=== PATIENT | male | born 1965 | race American Indian/Alaskan Native ===

== ENCOUNTER → 2021-01-12 09:37 | Outpatient (BNVA) | payer MEDICAID, SELFPAY | PROVIDERS: PCP Family Medicine; Visit Provider Student in an Organized Health Care Education/Training Program | DX: M25.50 Pain in unspecified joint (principal); L40.9 Psoriasis, unspecified | CPT/HCPCS: 99202 ==

== ENCOUNTER 2021-02-15 09:22 | Outpatient (REF) | payer MEDICAID, SELFPAY ==
--- NOTE | ~2021-02-15 | XR_ITS ---
EXAMINATION: XR KNEE, RIGHT XR KNEE, LEFT XR ANKLE, RIGHT XR ANKLE, LEFT XR FOOT, RIGHT XR FOOT, LEFT CLINICAL INFORMATION: Pain. COMPARISON: Left knee radiographs as well as bilateral ankle radiographs dated 10/03/2019. Right knee radiographs dated 07/29/2016. TECHNIQUE: AP, lateral, and sunrise views of the right and left knee. AP, lateral, and mortise views of the right and left ankle. AP, oblique, and lateral views of the right and left foot. FINDINGS: Right knee: Mild lateral compartment joint space narrowing. Tiny patellofemoral and lateral compartment marginal osteophytes. No osseous erosion. No fracture or dislocation. 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 No significant joint effusion. Atherosclerotic calcifications. Left knee: Tiny patellofemoral marginal osteophytes. No significant joint space narrowing. No osseous erosion. No fracture or dislocation. No significant joint effusion. Atherosclerotic calcifications. Right ankle: No acute fracture or dislocation. The ankle mortise is maintained. No joint space narrowing or marginal osteophytes. No osseous erosion. Dorsal calcaneal enthesophyte, unchanged. Mild degenerative spurring at the dorsal aspect of the posterior malleolus, new when compared to the prior examination. No significant joint effusion. Left ankle: No acute fracture or dislocation. The ankle mortise is maintained. No joint space narrowing or marginal osteophytes. No osseous erosion. Tiny plantar and dorsal calcaneal enthesophytes, similar when compared to the prior examination. Right foot: No acute fracture or dislocation. Joint space narrowing with marginal osteophytes at the 1st metacarpophalangeal and 1st interphalangeal joints. Subchondral cystic change and mild sclerosis at the articulation between the calcaneus and navicula, which could indicate a fibrous calcaneonavicular coalition. Left foot: No acute fracture or dislocation. Mild joint space narrowing with small marginal osteophytes at the 1st metacarpophalangeal and interphalangeal joints. Mild subchondral sclerosis and spurring at the calcaneonavicular articulation, which could indicate a fibrous coalition. No abnormal soft tissue calcification. XR/XR ankle RT 2V IMPRESSION: Right knee: Minimal patellofemoral and lateral compartment osteoarthritis, unchanged. Redemonstration of a bipartite patella. Left knee: Minimal patellofemoral osteoarthritis, unchanged. Right ankle: No acute osseous abnormality. Stable dorsal calcaneal spur. Focal degenerative spurring at the dorsal posterior malleolus, new when compared to the prior examination. Left ankle: No acute osseous abnormality. Tiny plantar and dorsal calcaneal spurs, unchanged. Right foot: No acute osseous abnormality. Mild degenerative arthritis at the 1st metatarsophalangeal and interphalangeal joints. 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 Left foot: No acute osseous abnormality. Mild degenerative arthritis at the 1st metatarsophalangeal and interphalangeal joints. 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
[2021-02-15 10:21] LABS: MANUAL DIFF FLAG NO
[2021-02-15 10:33] LABS: Basophils Absolute Auto 0.2 X10*3/uL (0.0-0.2); Basophils Percent Auto 1.7 % (0-2); Eosinophils Absolute Auto 0.2 X10*3/uL (0.0-0.4); Eosinophils Percent Auto 1.7 % (0-4); Hematocrit 47.5 % (42-52); Hemoglobin 16.4 g/dl (14.0-18.0); Imm Gran Abs Auto 0.08 X10*3/uL (0.00-0.03); Imm Gran Pct Auto 0.7 % (0.0-0.4); Lymphocytes Absolute Auto 3.4 X10*3/uL (1.2-4.9); Lymphocytes Percent Auto 28.1 % (20-40); Mean Corpuscular HGB Conc 34.5 g/dl (31.0-36.0); Mean Corpuscular Hemoglobin 31.3 pg (27.0-33.0); Mean Corpuscular Volume 90.6 fL (80-98); Mean Platelet Volume 10.8 fL (9.4-12.4); Monocytes Absolute Auto 0.8 X10*3/uL (0.1-1.2); Monocytes Percent Auto 6.8 % (2-11); Neutrophils Absolute Auto 7.4 X10*3/uL (2.0-8.3); Platelet Count 388 X10*3/uL (160-400); Red Blood Count 5.24 X10*6/uL (4.60-5.80); Red Cell Distribution Width 12.7 % (11.0-16.0); White Blood Count 12.1 X10*3/uL (4.8-10.8)
[2021-02-15 10:49] LABS: Alanine Aminotransferase 37 U/L (0-40); Albumin Level 4.5 g/dL (3.5-5.0); Alkaline Phosphatase 137 U/L (39-117); Anion Gap 14 (12-20); Aspartate Amino Transferase 22 U/L (5-37); Bilirubin Total 1.2 mg/dL (0.0-1.0); Blood Urea Nitrogen 8 mg/dL (9-16); C Reactive Protein 0.93 mg/dL (< or = 0.50); Carbon Dioxide 31 mmol/L (22-29); Chloride 97 mmol/L (96-108); Estimated Glomerular Filt Rate > 60; Glucose Random 213 mg/dL (60-115); Potassium 4.2 mmol/L (3.3-5.1); Sodium 138 mmol/L (135-145); Total Protein 7.9 g/dL (6.5-8.0)
[2021-02-15 11:05] LABS: HBc Num1 0.05 S/CO (0.00-0.79); Hepatitis B Core Antibody Nonreactive (Nonreactive); ~HepC Num1 0.08 S/CO (0.00-0.79); ~Hepatitis B Surface Antibody NONREACTIVE (Nonreactive); ~Hepatitis C Antibody Nonreactive (Nonreactive)
[2021-02-15 11:11] LABS: Thyroid Stimulating Hormone 0.96 uIU/mL (0.32-4.0)
[2021-02-15 11:26] LABS: Erythrocyte Sedimentation Rate 10 MM/HR (0-15)
[2021-02-15 12:38] LABS: HBsAGNum1 1.08 S/CO (0.00-0.99); HBsAGNum2 Reactive; HBsAGNum3 Reactive
[2021-02-15 12:39] LABS: Hepatitis B Surface Antigen Retest CNFM (Negative)
[2021-02-16 05:09] LABS: Hepatitis B Surface Antigen Rep Reactive (Negative); R2 S/CO 1.07 S/CO
[2021-02-16 05:50] LABS: Neutralization % 0
[2021-02-16 11:52] LABS: Lyme Abs Screen <0.90 index
[2021-02-16 15:02] LABS: Cyclic Citrullinated Peptide <16 UNITS
[2021-02-19 04:42] LABS: Hepatitis A Antibody IgM 0.53 Index (0-0.79); ~Hepatitis A Antibody IgM Nonreactive (Nonreactive)
[2021-02-19 14:42] LABS: Vitamin D 25-OH, D2 <4 ng/mL; Vitamin D 25-OH, D3 41 ng/mL; Vitamin D 25-OH, Total 41 ng/mL (30-100)
== END 2021-02-15 09:23 | disposition home or self-care (01) ==
LOC: HO.LAB 09:22
PROVIDERS: PCP Family Medicine; Visit Provider Student in an Organized Health Care Education/Training Program
DX: M25.50 Pain in unspecified joint (principal)
CPT/HCPCS: 36415; 73562; 73600; 73620; 80053; 82306; 84443; 85025; 85652; 86140; 86200; 86617; 86618; 86704; 86706; 86709; 86803; 87340

== ENCOUNTER → 2021-02-18 10:57 | Outpatient (BNVA) | payer MEDICAID, SELFPAY | PROVIDERS: Visit Provider Student in an Organized Health Care Education/Training Program | DX: M25.50 Pain in unspecified joint (principal); L40.9 Psoriasis, unspecified | CPT/HCPCS: 99212 ==

== ENCOUNTER → 2021-07-28 07:47 | Outpatient (BNVA) | payer MEDICAID, SELFPAY | PROVIDERS: PCP Family Medicine; Visit Provider Nurse Practitioner Family ==

== ENCOUNTER 2021-12-24 07:08 | Outpatient (REF) | payer MEDICAID, SELFPAY ==
--- NOTE | ~2021-12-24 | XR_ITS ---
EXAMINATION: STANDING BILATERAL KNEES AND LATERAL AND PATELLAR VIEWS OF THE LEFT KNEE CLINICAL INFORMATION: Knee pain COMPARISON: None TECHNIQUE: A standing frontal radiograph of both knees and lateral and patellar views of the left knee were acquired. FINDINGS: There is no evidence of fracture, dislocation or bone lesion. In the left knee, tiny marginal patellar osteophytes are noted, but joint spaces are preserved. No significant degenerative or proliferative changes are detected. There is no significant joint effusion. The right knee joint is preserved. 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 Arterial calcifications are noted in both legs. XR/XR knee LT 2V IMPRESSION: 1. Minimal patellofemoral osteophyte formation in the left knee, but no significant degenerative, hypertrophic or arthropathic change in either knee.
--- NOTE | ~2021-12-24 | XR_ITS ---
EXAMINATION: STANDING BILATERAL KNEES AND LATERAL AND PATELLAR VIEWS OF THE LEFT KNEE CLINICAL INFORMATION: Knee pain COMPARISON: None TECHNIQUE: A standing frontal radiograph of both knees and lateral and patellar views of the left knee were acquired. FINDINGS: There is no evidence of fracture, dislocation or bone lesion. In the left knee, tiny marginal patellar osteophytes are noted, but joint spaces are preserved. No significant degenerative or proliferative changes are detected. There is no significant joint effusion. The right knee joint is preserved. 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 Arterial calcifications are noted in both legs. XR/XR knee standing BI IMPRESSION: 1. Minimal patellofemoral osteophyte formation in the left knee, but no significant degenerative, hypertrophic or arthropathic change in either knee.
== END 2021-12-24 07:09 | disposition home or self-care (01) ==
LOC: HO.HOSX 07:08
PROVIDERS: Visit Provider Physician Assistant
DX: M23.92 Unspecified internal derangement of left knee (principal); F17.210 Nicotine dependence, cigarettes, uncomplicated
CPT/HCPCS: 73560; 73565; 99202

== ENCOUNTER → 2022-02-02 19:30 | Outpatient (REF) | payer MEDICAID, SELFPAY | LOC: HO.SL 19:30 | PROVIDERS: Visit Provider Registered Nurse | DX: G47.33 Obstructive sleep apnea (adult) (pediatric) (principal); M25.50 Pain in unspecified joint; M25.562 Pain in left knee; L40.9 Psoriasis, unspecified | CPT/HCPCS: 95811; 99212 ==

== ENCOUNTER → 2022-09-01 09:50 | Outpatient (BNVA) | payer MEDICAID, SELFPAY | PROVIDERS: PCP Family Medicine; Visit Provider Nurse Practitioner Family | DX: L40.9 Psoriasis, unspecified (principal); M17.12 Unilateral primary osteoarthritis, left knee | CPT/HCPCS: 99212 ==

== ENCOUNTER 2023-07-14 08:16 | Outpatient (REF) | payer MEDICAID, SELFPAY ==
[2023-07-14 12:32] LABS: Alanine Aminotransferase 21 U/L (0-40); Alkaline Phosphatase 147 U/L (39-117); Aspartate Amino Transferase 22 U/L (5-37); Bilirubin Direct 0.5 mg/dL (0.0-0.5); Bilirubin Total 0.9 mg/dL (0.0-1.0); Cholesterol 117 mg/dL (<200); HDL Cholesterol 40 mg/dL (>40); LDL Cholesterol Calculated 55 mg/dL (<100); Total Protein 7.8 g/dL (6.5-8.0); Triglycerides 111 mg/dL (<150)
== END 2023-07-14 08:17 | disposition home or self-care (01) ==
LOC: HO.HHCL 08:16
PROVIDERS: Visit Provider Registered Nurse
DX: E78.1 Pure hyperglyceridemia (principal)
CPT/HCPCS: 36415; 80061; 80076

== ENCOUNTER 2023-09-22 09:14 | Outpatient (REF) | payer MEDICAID, SELFPAY ==
[2023-09-22 15:06] LABS: Vitamin D 25-OH Total 26.9 ng/mL (>30)
[2023-09-22 15:11] LABS: Estimated Average Glucose 114 mg/dL; Hemoglobin A1C 150.6635 umol/L; Hemoglobin A1c % 5.6 % (<6.0)
== END 2023-09-22 09:15 | disposition home or self-care (01) ==
LOC: HO.CHCLDS 09:14
PROVIDERS: Visit Provider Registered Nurse
DX: E11.9 Type 2 diabetes mellitus without complications (principal); Z79.4 Long term (current) use of insulin; Z86.39 Personal history of other endocrine, nutritional and metabolic disease
CPT/HCPCS: 36415; 82306; 83036

== ENCOUNTER 2023-12-14 08:05 | Outpatient (REF) | payer MEDICAID, SELFPAY ==
[2023-12-14 11:52] LABS: HIV AB/AG Nonreactive (Nonreactive); HIV Num 1 0.05 S/CO (0.00-0.99)
[2023-12-14 11:58] LABS: Alanine Aminotransferase 23 U/L (0-40); Alkaline Phosphatase 133 U/L (39-117); Anion Gap 13 (12-20); Aspartate Amino Transferase 22 U/L (5-37); Bilirubin Direct 0.4 mg/dL (0.0-0.5); Bilirubin Total 0.7 mg/dL (0.0-1.0); Blood Urea Nitrogen 11 mg/dL (9-16); Carbon Dioxide 30 mmol/L (22-29); Chloride 94 mmol/L (96-108); Estimated Glomerular Filt Rate > 60; Gamma Glutamyl Transpeptidase 103 U/L (11-51); Glucose Random 126 mg/dL (60-115); Potassium 3.2 mmol/L (3.3-5.1); Sodium 134 mmol/L (135-145); Total Protein 7.7 g/dL (6.5-8.0)
[2023-12-14 12:17] LABS: Creatinine Urine 79.82 mg/dL
[2023-12-14 13:19] LABS: CT PCR NOT DETECTED (Not Detect.); NG PCR NOT DETECTED (Not Detect.)
[2023-12-16 15:03] LABS: HCV Log PCR <1.18 NOT DETECTED Log IU/mL (NOT DETECTED); HepC Viral Load <15 NOT DETECTED IU/mL (NOT DETECTED)
[2023-12-18 13:54] LABS: RPR Rapid Plasma Reagin NON-REACTIVE (NON-REACTIVE)
== END 2023-12-14 08:06 | disposition home or self-care (01) ==
LOC: HO.HHCL 08:05
PROVIDERS: Visit Provider Registered Nurse
DX: Z00.00 Encounter for general adult medical examination without abnormal findings (principal); Z11.4 Encounter for screening for human immunodeficiency virus [HIV]; Z11.3 Encounter for screening for infections with a predominantly sexual mode of transmission; R74.8 Abnormal levels of other serum enzymes; E11.9 Type 2 diabetes mellitus without complications; Z79.4 Long term (current) use of insulin
CPT/HCPCS: 0353U; 36415; 80048; 80076; 82043; 82570; 82977; 86592; 87389; 87522

== ENCOUNTER 2023-12-25 08:36 | Outpatient (REF) | payer MEDICAID, SELFPAY ==
[2023-12-25 15:02] LABS: Anion Gap 16 (12-20); Blood Urea Nitrogen 12 mg/dL (9-16); Calcium 9.7 mg/dL (8.4-10.2); Carbon Dioxide 29 mmol/L (22-29); Chloride 92 mmol/L (96-108); Estimated Glomerular Filt Rate > 60; Glucose Random 146 mg/dL (60-115); Magnesium 2.4 mg/dL (1.6-2.6); Potassium 3.1 mmol/L (3.3-5.1); Sodium 134 mmol/L (135-145)
== END 2023-12-25 08:37 | disposition home or self-care (01) ==
LOC: HO.CHCLDS 08:36
PROVIDERS: Visit Provider Registered Nurse
DX: E87.6 Hypokalemia (principal)
CPT/HCPCS: 36415; 80048; 83735

== ENCOUNTER 2024-01-03 08:08 | Outpatient (REF) | payer MEDICAID, SELFPAY ==
[2024-01-03 15:17] LABS: Anion Gap 16 (12-20); Blood Urea Nitrogen 10 mg/dL (9-16); Calcium 9.4 mg/dL (8.4-10.2); Carbon Dioxide 25 mmol/L (22-29); Chloride 96 mmol/L (96-108); Estimated Glomerular Filt Rate > 60; Glucose Random 100 mg/dL (60-115); Potassium 3.3 mmol/L (3.3-5.1); Sodium 134 mmol/L (135-145)
== END 2024-01-03 08:09 | disposition home or self-care (01) ==
LOC: HO.CHCLDS 08:08
PROVIDERS: Visit Provider Registered Nurse
DX: E87.6 Hypokalemia (principal)
CPT/HCPCS: 36415; 80048

== ENCOUNTER 2024-01-10 08:32 | Outpatient (REF) | payer MEDICAID, SELFPAY ==
--- NOTE | ~2024-01-10 | US_ITS ---
EXAMINATION: US ABDOMEN LIMITED CLINICAL INFORMATION: Elevated alkaline phosphatase. COMPARISON: None available. TECHNIQUE: Real-time imaging of the right upper quadrant abdominal viscera. FINDINGS: PANCREAS: Largely obscured by overlapping bowel gas. LIVER: The liver is normal in size. The liver contour is normal. There is diffuse increased liver parenchymal echogenicity. No focal hepatic lesion. There is no intrahepatic biliary duct dilatation seen. GALLBLADDER: Surgically absent. COMMON BILE DUCT: Normal in caliber measuring 0.6 cm in diameter. RIGHT KIDNEY: Normal. No hydronephrosis. No renal calculi or focal parenchymal lesions. The kidney measures 12.7 cm in maximum dimension. FREE FLUID: None. US/US abdomen limited IMPRESSION: 1. There is generalized increase in hepatic echotexture, consistent with fatty infiltration or hepatocellular disease. Please correlate clinically. No focal hepatic mass or intrahepatic biliary dilatation is seen. 2. The gallbladder surgically absent. 3. Technically limited ultrasound examination of the pancreas.
== END 2024-01-10 08:33 | disposition home or self-care (01) ==
LOC: HO.US 08:32
PROVIDERS: PCP Registered Nurse; Visit Provider Registered Nurse
DX: R74.8 Abnormal levels of other serum enzymes (principal)
CPT/HCPCS: 76705

== ENCOUNTER 2024-03-04 09:31 | Outpatient (REF) | payer MEDICAID, SELFPAY ==
[2024-03-04 15:05] LABS: Anion Gap 13 (12-20); Blood Urea Nitrogen 9 mg/dL (9-16); Calcium 9.7 mg/dL (8.4-10.2); Carbon Dioxide 30 mmol/L (22-29); Chloride 95 mmol/L (96-108); Estimated Glomerular Filt Rate > 60; Glucose Random 121 mg/dL (60-115); Potassium 3.3 mmol/L (3.3-5.1); Sodium 135 mmol/L (135-145)
[2024-03-04 15:35] LABS: Vitamin B12 1558 pg/mL (200-900)
== END 2024-03-04 09:32 | disposition home or self-care (01) ==
LOC: HO.CHCLDS 09:31
PROVIDERS: Visit Provider Registered Nurse
DX: E11.9 Type 2 diabetes mellitus without complications (principal); Z79.4 Long term (current) use of insulin
CPT/HCPCS: 36415; 80048; 82607

== ENCOUNTER 2025-05-07 08:21 | Outpatient (REF) | payer MEDICAID, SELFPAY ==
--- OUTSIDE RECORDS SUMMARY | 2025-05-07 08:34 | XMS_ITS | Encounter Summary ---
Author Organization [employer] Address [address] [facility] [address] [place] [address] Care Team Providers Care Mortgage Processing Clerk Name Role Phone Bel Toro PAYROLL AND BENEFITS COORDINATOR Primary Care Provider [phone] Encounter Details Date Type Department Care Team (Late st Contact Info) Description 09/29/[address] [facility] MEDICINE [address] [place], [place] [phone] Dottie Hill Social History Tobacco Use Types Packs/Day Years Used Date Smoking Tobacco: Every Day Cigarettes Smokeless Tobacco: Never Alcohol Use Standard Drinks/Week Comments Yes 0 (1 standard drink = 0.6 oz pur e alcohol) Depression Answer Date Recorded Patient Health Questionnaire-9 Score 0 03/02/2023 Housing Stability Answer Date Recorded What is your housing situation today? I have buzz garcía 09/05/[address] you li ve. Do you have problems with any of the following? None of the above 09/05/2023 Food Insecurity Answer Date Recorded Within the past 12 months, y ou worried that your food would run out before you got money to buy more: Never True 09/05/2023 Within the past 12 months,th e food you bought just didn't last and you didn't have enough money to get more: Never True Transportation Answer Date Recorded In the past 12 months, has l ack of transportation kept you from medical appts, meetings, work or from getting things needed for daily living? No 09/05/2023 Utilities Answer Date Recorded In the past 12 months, has t he electric, gas, oil or water company threatened to shut off services in your home? No 09/05/2023 Depression Answer Date Recorded Patient Health Questionnaire-2 Score 0 03/02/2023 Sex and Gender Information Value Date Recorded Sex Assigned at Male 09/12/2022 10:18 AM EDT Legal Sex Male 10:18 AM EDT Gender Identity Male 09/12/2022 10:18 AM EDT Sexual Orientation Straight 09/12/2022 10 :18 AM EDT documented as of this encounter Plan of Treatment Upcoming Encounters Date Type Department Care Team ([facility] st Contact Info) Description 08/11/2025 9:00 AM EDT Office Visit [facility] MED & PEDS [address] [place] [address] Bel Toro FNP [address] [place] [address] documented as of this encounter Procedures Procedure Name Priority Date/Time Associated Diagnosis Comments COLONOSCOPY Routine 07/24/2018 documented in this encounter Results * Colonoscopy (07/24/2018) Colonoscopy Normal Normal Narrative Dottie Hill - 07/24/2018 Repeat in 3 years Historical Provider HEALTH MAINTENANCE Final Result documented in this encounter Visit Diagnoses Not on filedocumented in this encounter Additional Health Concerns Assessment Noted Time PHQ-9 Depression Total Score: 0 03/02/20 23 11:17 AM EDT documented as of this encounter Care Teams Mortgage Processing Clerk Relationship Specialty Start Date End Date Bel Toro FNP [address] [place] [address] PCP - General Family Medicine 08/30/21 documented as of this encounter
[2025-05-07 11:10] LABS: MANUAL DIFF FLAG NO
[2025-05-07 11:17] LABS: Basophils Absolute Auto 0.2 X10*3/uL (0.0-0.2); Basophils Percent Auto 2.4 % (0-2); Eosinophils Absolute Auto 0.3 X10*3/uL (0.0-0.4); Eosinophils Percent Auto 3.1 % (0-4); Hematocrit 46.6 % (42.0-52.0); Hemoglobin 16.5 g/dl (14.0-18.0); Imm Gran Abs Auto 0.04 X10*3/uL (0.00-0.03); Imm Gran Pct Auto 0.4 % (0.0-0.4); Lymphocytes Percent Auto 32.6 % (20-40); Mean Corpuscular HGB Conc 35.4 g/dl (31.0-36.0); Mean Corpuscular Hemoglobin 30.3 pg (27.0-33.0); Mean Corpuscular Volume 85.5 fL (80.0-98.0); Mean Platelet Volume 9.9 fL (9.4-12.4); Monocytes Percent Auto 10.7 % (2-11); Neutrophils Absolute Auto 4.7 x10*3/uL (2.0-8.3); Neutrophils Percent Auto 50.8 % (45-73); Platelet Count 364 X10*3/uL (160-400); Red Blood Count 5.45 X10*6/uL (4.60-5.80); Red Cell Distribution Width 12.3 % (11.0-16.0); White Blood Count 9.3 X10*3/uL (4.8-10.8)
[2025-05-07 11:26] LABS: Estimated Average Glucose 97 mg/dL
[2025-05-07 11:54] LABS: Alanine Aminotransferase 46 U/L (0-40); Albumin Level 4.4 g/dL (3.5-5.0); Alkaline Phosphatase 110 U/L (39-117); Anion Gap 13 (12-20); Aspartate Amino Transferase 38 U/L (5-37); Blood Urea Nitrogen 9 mg/dL (9-16); Calcium 9.6 mg/dL (8.4-10.2); Carbon Dioxide 29 mmol/L (22-29); Chloride 94 mmol/L (96-108); Cholesterol 121 mg/dL (<200); Creatinine Urine 56.11 mg/dL; Estimated Glomerular Filt Rate > 60; Glucose Random 128 mg/dL (60-115); HDL Cholesterol 63 mg/dL (>40); LDL Cholesterol Calculated 39 mg/dL (<100); Microalbum/Creatinine Ratio Ur 21.3 ug/mg cr (<30); Potassium 3.6 mmol/L (3.3-5.1); Sodium 132 mmol/L (135-145); Total Protein 7.8 g/dL (6.5-8.0); Triglycerides 98 mg/dL (<150)
[2025-05-07 11:56] LABS: TSH reflex Free T4 1.57 uIU/mL (0.32-4.0); Vitamin D 25-OH Total 30.6 ng/mL (>30)
[2025-05-07 12:01] LABS: Prostate Specific Antigen 0.97 ng/mL (<0.05-4.0); Vitamin B12 1451 pg/mL (200-900)
[2025-05-08 07:57] LABS: HIV AB/AG Nonreactive (Nonreactive); HIV Num 1 0.06 S/CO (0.00-0.99)
[2025-05-09 09:54] LABS: RPR Rapid Plasma Reagin NON-REACTIVE (NON-REACTIVE)
[2025-05-09 13:29] LABS: HCV Log PCR <1.18 NOT DETECTED Log IU/mL (NOT DETECTED); HepC Viral Load <15 NOT DETECTED IU/mL (NOT DETECTED)
== END 2025-05-07 08:22 | disposition home or self-care (01) ==
LOC: HO.HHCL 08:21
PROVIDERS: PCP Registered Nurse; Visit Provider Registered Nurse
DX: Z00.00 Encounter for general adult medical examination without abnormal findings (principal); E11.9 Type 2 diabetes mellitus without complications; Z79.4 Long term (current) use of insulin
CPT/HCPCS: 36415; 80053; 80061; 82043; 82306; 82570; 82607; 83036; 84153; 84443; 85025; 86592; 87389; 87522

== ENCOUNTER 2025-05-13 08:08 | Outpatient (REF) | payer MEDICAID, SELFPAY ==
--- OUTSIDE RECORDS SUMMARY | 2025-05-13 08:14 | XMS_ITS | Encounter Summary ---
Author Organization [employer] Address [address] [facility] 7t [place] [address] Care Team Providers Care Air Compressor Operator Name Role Phone Bel Troo HISTOPATHOLOGY TECHNICIAN Primary Care Provider [phone] Encounter Details Date Type Department Care Team (Late st Contact Info) Description 09/29/2023 Abstract [facility] MEDICINE [address] [place], [place] [phone] Dottie Hill Social History Tobacco Use Types [...] Upcoming Encounters Date Type Department Care Team ([facility] st Contact Info) Description 08/11/2025 9:00 AM EDT Office Visit [facility] MED & PEDS [address] [place] [address] Bel Toro FNP [address] [place] [address] documented as of this encounter Procedures Procedure [...] documented as of this encounter Care Teams Air Compressor Operator Relationship Specialty Start Date End Date Bel Toro FNP [address] [place] [address] PCP - General Family Medicine 08/30/21 documented as of this encounter
[2025-05-13 14:46] LABS: Anion Gap 13 (12-20); Blood Urea Nitrogen 6 mg/dL (9-16); Calcium 9.3 mg/dL (8.4-10.2); Carbon Dioxide 31 mmol/L (22-29); Chloride 94 mmol/L (96-108); Estimated Glomerular Filt Rate > 60; Potassium 3.8 mmol/L (3.3-5.1); Sodium 134 mmol/L (135-145)
== END 2025-05-13 08:09 | disposition home or self-care (01) ==
LOC: HO.CHCLDS 08:08
PROVIDERS: Visit Provider Registered Nurse
DX: E87.1 Hypo-osmolality and hyponatremia (principal)
CPT/HCPCS: 36415; 80048

== ENCOUNTER 2025-08-08 08:28 | Outpatient (REF) | payer MEDICAID, SELFPAY ==
--- OUTSIDE RECORDS SUMMARY | 2025-08-08 08:47 | XMS_ITS | Encounter Summary ---
Author Organization [employer] Address [address] [facility] [address]t [place] [address] Care Team Providers Care Security Alarm Technician Name Role Phone Stanleymilli Ebl DENTAL HYGIENIST MOBILE COORDINATOR Primary Care Provider [phone] Encounter Details Date Type Department Care Team ([facility] Contact Info) Description 04/04/2024 Telephone [facility] [address] [place], [place] [phone] Bel Toro FNP [address] [place], [place] [phone] Social History Tobacco Use Types Packs/Day Years Used Date Smoking Tobacco: Some Days Cigarettes Passive Smoke Exposure: Current Smokeless Tobacco: Never Alcohol Use Standard Drinks/Week Comments Yes 0 (1 standard drink = 0.6 oz pur e alcohol) Depression Answer Date Recorded Patient Health Questionnaire-9 Score 0 12/11/2023 Patient Health Questionnaire-9 Score 0 12/11/2023 Last PHQ-9: Questionnaire Data Not on file 0 12/11/2023 Housing Stability Answer Date Recorded What is your housing situation today? I have buzz garcía 12/01/[address] you li ve. Do you have problems with any of the following? None of the above 12/01/2023 Food Insecurity Answer Date Recorded Within the past 12 months, y ou worried that your food would run out before you got money to buy more: Never True 12/01/2023 Within the past 12 months,th e food you bought just didn't last and you didn't have enough money to get more: Never True Transportation Answer Date Recorded In the past 12 months, has l ack of transportation kept you from medical appts, meetings, work or from getting things needed for daily living? No 12/01/2023 Utilities Answer Date Recorded In the past 12 months, has t he electric, gas, oil or water company threatened to shut off services in your home? No 12/01/2023 Depression Answer Date Recorded Patient Health Questionnaire-2 Score 0 12/11/2023 Sex and Gender Information Value Date Recorded Sex Assigned at Male 09/12/2022 10:18 AM EDT Legal Sex Male 10:18 AM EDT Gender Identity Male 09/12/2022 10:18 AM EDT Sexual Orientation Straight 09/12/2022 10 :18 AM EDT documented as of this encounter Miscellaneous Notes * Telephone Encounter - Clau Petit RN - 04/04/2024 1:06 PM EDT Placed call to [facility] pharmacy and confirmed that they do have some 0.75 Trulicity left. They confirmed that they could fill refill. Called pt and informed. Pt states he will go tomorrow morning to pickit up. * Telephone Encounter - Melissa Yip - 04/04/2024 12:45 PM EDT Tc from pt states pharmacy is out of stock for Trulicity 0.75 MG/0.5ML solution pen-injector documented in this encounter Plan of Treatment Upcoming Encounters Date Type Department Care Team (Late st Contact Info) Description 08/11/2025 9:00 AM EDT Office Visit [facility] MED & PEDS [address] [place] [address] Bel Toro FNP [address] [place] [address] documented as of this encounter Visit Diagnoses Not on filedocumented in this encounter Additional Health Concerns Assessment Noted Time PHQ-9 Depression Total Score: 0 12/11/19 24 10:43 AM EST documented as of this encounter Care Teams Security Alarm Technician Relationship Specialty Start Date End Date Bel Toro FNP [address] [place] [address] PCP - General Family Medicine 08/30/21 documented as of this encounter
--- OUTSIDE RECORDS SUMMARY | 2025-08-08 08:47 | XMS_ITS | Encounter Summary ---
Author Organization [employer] Address [address] [facility] [address] [place] [address] Care Team Providers Care Quantitative Manager Name Role Phone Cortez Bel DOWELL Primary Care Provider [phone] Encounter Details Date Type Department Care Team ([facility] st Contact Info) Description 03/05/2024 Orders Only [facility] MED & PEDS [address] [place], [place] [phone] Bel Toro FNP [address] [place] [address] Social History Tobacco Use Types Packs/Day Years [...] Description 08/11/2025 9:00 AM EDT Office Visit [facility] MED & PEDS [address] [place] [address] Bel Toro FNP [address] [place] [address] documented as of this encounter Visit Diagnoses Not on filedocumented in this encounter Additional Health Concerns Assessment Noted Time PHQ-9 Depression Total Score: 0 12/11/19 24 10:43 AM EST documented as of this encounter Care Teams Quantitative Manager Relationship Specialty Start Date End Date Bel Toro FNP [address] [place] [address] PCP - General Family Medicine 08/30/21 documented as of this encounter
--- OUTSIDE RECORDS SUMMARY | 2025-08-08 08:47 | XMS_ITS | Encounter Summary ---
Author Organization [employer] Address [address] [facility] 7t [place] [address] Care Team Providers Care Compensation Analyst Name Role Phone Bel Toro Primary Care Provider [phone] Reason for Visit * Reason Comments Med Refill Encounter Details Date Type Department Care Team ([facility] st Contact Info) Description 10/16/2024 Refill [facility] MED & PEDS [address] [place], [place] [phone] Bel Toro FNP [address] [place] [address] Vitamin D insufficiency Social History Tobacco Use Types Packs/Day Years [...] Description 08/11/2025 9:00 AM EDT Office Visit [facility] MED & PEDS [address] [place] [address] Bel Toro FNP [address] [place] [address] documented as of this encounter Visit Diagnoses Diagnosis Vitamin D insufficiency documented in this encounter Additional Health Concerns Assessment Noted Time PHQ-9 Depression Total Score: 0 12/11/19 24 10:43 AM EST documented as of this encounter Care Teams Compensation Analyst Relationship Specialty Start Date End Date Bel Toro FNP [address] [place] [address] PCP - General Family Medicine 08/30/21 documented as of this encounter
--- OUTSIDE RECORDS SUMMARY | 2025-08-08 08:47 | XMS_ITS | Encounter Summary ---
Author Organization [employer] Address [address] [facility] [address] [place] [address] Care Team Providers Care Electrical Hardware Engineer Name Role Phone Bel Toro Primary Care Provider [phone] Reason for Visit * Reason Comments Pre-visit Planning SDOH screening compl eted on 04/28/25 Encounter Details Date Type Department Care Team ([facility] st Contact Info) Description 08/04/2025 Patient Outreach [facility] MEDICINE [address] [place] [address] Bel Toro FNP [address] [place] [address] Pre-visit Planning (SDOH screening completed on 04/28/25) Social History Tobacco Use Types Packs/Day Years Used Date Smoking Tobacco: Some Days Cigarettes Passive Smoke Exposure: Current Smokeless Tobacco: Never Alcohol Use Standard Drinks/Week Comments Yes 0 (1 standard drink = 0.6 oz pur e alcohol) Depression Answer Date Recorded Patient Health Questionnaire-9 Score 4 05/05/2025 Patient Health Questionnaire-9 Score 4 05/05/2025 Last PHQ-9: Questionnaire Data Not on file 0 05/05/2025 Housing Stability Answer Date Recorded What is your housing situation today? I have buzz garcía 04/28/[address] you li ve. Do you have problems with any of the following? None of the above 04/28/2025 Food Insecurity Answer Date Recorded Within the past 12 months, y ou worried that your food would run out before you got money to buy more: Never True 04/28/2025 Within the past 12 months,th e food you bought just didn't last and you didn't have enough money to get more: Never True Transportation Answer Date Recorded In the past 12 months, has l ack of transportation kept you from medical appts, meetings, work or from getting things needed for daily living? No 04/28/2025 Utilities Answer Date Recorded In the past 12 months, has t he electric, gas, oil or water company threatened to shut off services in your home? No 04/28/2025 Depression Answer Date Recorded Patient Health Questionnaire-2 Score 1 05/05/2025 Internet Access Answer Date Recorded Internet Access Q1 Yes 04/28/2025 Internet Access Q2 Not on file 04/28/2025 Sex and Gender Information Value Date Recorded Sex Assigned at Male 09/12/2022 10:18 AM EDT Legal Sex Male 10:18 AM EDT Gender Identity Male 09/12/2022 10:18 AM EDT Sexual Orientation Straight 09/12/2022 10 :18 AM EDT documented as of this encounter Progress Notes * Tera Solis - 08/04/2025 11:31 AM EDT CC Tera garcia successful outbound call to patient for pre-visit planning. Patient name and confirmed. Patient confirms appt date and time, and has transportation arrangements. Biggest concern for appointment at this time is no concerns. Patient advised to bring to appointment a photo id and insurance card. Appropriate screenings completed in anticipation of appointment. documented in this encounter Plan of Treatment Upcoming Encounters Date Type Department Care Team ([facility] Contact Info) Description 08/11/2025 9:00 AM EDT Office Visit [facility] MED & PEDS [address] [place] [address] Bel Toro FNP [address] [place] [address] documented as of this encounter Visit Diagnoses Not on filedocumented in this encounter Additional Health Concerns Assessment Noted Time PHQ-9 Depression Total Score: 4 05/05/20 25 11:17 AM EDT documented as of this encounter Care Teams Electrical Hardware Engineer Relationship Specialty Start Date End Date Bel Toro FNP [address] [place] [address] PCP - General Family Medicine 08/30/21 documented as of this encounter
--- OUTSIDE RECORDS SUMMARY | 2025-08-08 08:47 | XMS_ITS | Encounter Summary ---
Author Organization [employer] Address [address] [facility] [address] [place] [address] Care Team Providers Care Time Clock Mechanic Name Role Phone Bel Toro Primary Care Provider [phone] Reason for Visit * Reason Onset Date Comments Med Refill 04/08/2025 Encounter Details Date Type Department Care Team ([facility] st Contact Info) Description 04/08/2025 Telephone [facility] MEDICINE [address] [place] [address] Bel Toro FNP [address] [place], [place] [phone] Med Refill Social History Tobacco Use Types Packs/Day Years [...] encounter Miscellaneous Notes * Telephone Encounter - Geraldine Malhotra LPN - 04/08/2025 12:28 PM EDT Medication pended to PCP. * Telephone Encounter - Fan Mcduffie - 04/08/2025 11:55 AM EDT TC from pt requesting medication refill. Medications needing refill : amLODIPine (Norvasc) 10 MG tablet To be sent to: [id number] [place], [place] - [address] [facility] documented in this encounter Plan of Treatment Upcoming Encounters Date Type Department Care Team (Late st Contact Info) Description 08/11/2025 9:00 AM EDT Office Visit [facility] MED & PEDS [address] [place] [address] Bel Toro FNP [address] [place] [address] documented as of this encounter Visit Diagnoses Not on filedocumented in this encounter Additional Health Concerns Assessment Noted Time PHQ-9 Depression Total Score: 0 12/11/19 24 10:43 AM EST documented as of this encounter Care Teams Time Clock Mechanic Relationship Specialty Start Date End Date Bel Toro FNP [address] [place] [address] PCP - General Family Medicine 08/30/21 documented as of this encounter
--- OUTSIDE RECORDS SUMMARY | 2025-08-08 08:47 | XMS_ITS | Encounter Summary ---
Author Organization [employer] Address [address] [facility] [address] [place] [address] Care Team Providers Care Political Organizer Name Role Phone Bel Toro Primary Care Provider [phone] Reason for Visit * Reason Comments Med Refill Encounter Details Date Type Department Care Team ([facility] st Contact Info) Description 04/26/2025 Refill [facility] MEDICINE [address] [place] [address] Bel Toro FNP [address] [place], [place] [phone] Social History Tobacco Use Types Packs/Day Years [...] Recorded Patient Health Questionnaire-2 Score 0 12/11/2023 Internet Access Answer Date Recorded Internet Access [...] Upcoming Encounters Date Type Department Care Team ([facility] st Contact Info) Description 08/11/2025 9:00 AM EDT Office Visit [facility] MED & PEDS [address] [place] [address] Bel Toro FNP [address] [place] [address] documented as of this encounter Visit Diagnoses Not on filedocumented in this encounter Additional Health Concerns Assessment Noted Time PHQ-9 Depression Total Score: 0 12/11/19 24 10:43 AM EST documented as of this encounter Care Teams Political Organizer Relationship Specialty Start Date End Date Bel Toro FNP [address] [place] [address] PCP - General Family Medicine 08/30/21 documented as of this encounter
--- OUTSIDE RECORDS SUMMARY | 2025-08-08 08:47 | XMS_ITS | Encounter Summary ---
Author Organization [employer] Address [address] [facility] [address] [place] [address] Care Team Providers Care Commercial Artist Name Role Phone Bel Toro Primary Care Provider [phone] Encounter Details Date Type Department Care Team (Late Contact Info) Description 04/17/2023 Orders Only [facility] MEDICINE [address] [place], [place] [phone] Bel Toro FNP [address] [place], [place] [phone] Social History Tobacco Use Types Packs/Day Years Used Date Smoking Tobacco: Every Day Cigarettes Smokeless Tobacco: Never Alcohol Use Standard Drinks/Week Comments Yes 0 (1 standard drink = 0.6 oz pur e alcohol) Depression Answer Date Recorded Patient Health Questionnaire-9 Score 0 03/02/2023 Depression Answer Date Recorded Patient Health Questionnaire-2 Score 0 03/02/2023 Sex and Gender Information Value Date Recorded Sex Assigned at Male 09/12/2022 10:18 AM EDT Legal Sex Male 10:18 AM EDT Gender Identity Male 09/12/2022 10:18 AM EDT Sexual Orientation Straight 09/12/2022 10 :18 AM EDT documented as of this encounter Plan of Treatment Upcoming Encounters Date Type Department Care Team (Late Contact Info) Description 08/11/2025 9:00 AM EDT Office Visit [facility] & PEDS [address] [place], [place] [phone] Bel Toro FNP [address] [place], [place] [phone] documented as of this encounter Visit Diagnoses Not on filedocumented in this encounter Additional Health Concerns Assessment Noted Time PHQ-9 Depression Total Score: 0 03/02/20 23 11:17 AM EDT documented as of this encounter Care Teams Commercial Artist Relationship Specialty Start Date End Date Bel Toro FNP [address] [place] [address] PCP - General Family Medicine 08/30/21 documented as of this encounter
--- OUTSIDE RECORDS SUMMARY | 2025-08-08 08:47 | XMS_ITS | Clinical Summary ---
Author Organization [facility] Address [address] [place] [address] Care Team Providers Care Drawing Checker Name Role Phone Bel Toro DELMER Primary Care Provider [phone] Allergies No known active allergies Medications lisinopril 40 MG tablet Take 1 tablet by mouth in the morning. 020 Active Blood Glucose Monitoring Suppl (FreeStyle Lite) device Inject under the skin if needed. Use as instructed Active FreeStyle lancets 1 each by Other route in the morning, at noon, and at bedtime. 022 Active Diclofenac Sodium (Voltaren) 1 % gelIndications:C hronic pain of both knees Apply 2 g topically if needed in the morning, at noon, in the evening, and at bedtime (knee pain). 100 g 2 022 Active metoprolol succinate XL (Toprol XL) 25 MG 24 hr tabletIndication s:Essential hypertension TAKE 1 TABLET BY MOUTH EVERY DAY 90 tablet 3 023 Active buPROPion XL (Wellbutrin XL) 300 MG 24 hr tablet Take 300 mg by mouth in the morning. 023 Active clotrimazole (Lotrimin) 1 % creamIndications :Tinea pedis of both feet apply 1 gram by topical route 2 times every day to the affected and surrounding areas of skin on the feet in the morning and evening 45 g 3 024 Active nicotine polacrilex (Nicotine Mini) 2 MG lozenge Dissolve 1 lozenge (2 mg) in the mouth if needed for smoking cessation. Weeks 1-6: 1 lozenge every 1-2 hrs (max 5 lozenges every 6 hrs; 20 lozenges/day); Weeks 7-9: 1 lozenge every 2-4 hrs Weeks 10-12: 1 lozenge every 4-8 hrs 2 lozenge 2 024 Active Alcohol Swabs (Alcohol Prep) 70 % padsIndications: Type 2 diabetes mellitus without complication, with long-term current use of insulin ([facility]) USE THREE TIMES DAILY NEEDED TO CLEAN SKIN PRIOR TO CHECKING BLOOD SUGAR 100 each 11 024 Active atorvastatin (Lipitor) 40 MG tabletIndication s:Hypertriglycer idemia TAKE 1 TABLET BY MOUTH EVERY DAY BEFORE BEDTIME FOR CHOLESTEROL 90 tablet 3 024 Active cholecalciferol (Vitamin D-3) 25 MCG (1000 UT) tabletIndication s:Vitamin D insufficiency Take 1 tablet (25 mcg) by mouth Once daily. 90 tablet 3 024 Active aspirin (Aspirin Low Dose) 81 MG EC tablet TAKE 1 TABLET BY MOUTH IN THE MORNING 90 tablet 3 025 Active FREESTYLE LITE test stripIndications :Type 2 diabetes mellitus without complication, with long-term current use of insulin ([facility]) USE DIRECTED THREE TIMES DAILY 100 strip 11 025 Active insulin glargine (Lantus SoloStar) 100 UNIT/ML penIndications:T ype 2 diabetes mellitus without complication, with long-term current use of insulin ([facility]) INJECT 20 UNITS SUBCUTANEOUSLY EVERY DAY DIRECTED 15 mL 5 025 Active traZODone (Desyrel) 50 MG tablet Take 50 mg by mouth if needed at bedtime for sleep. 025 Active amLODIPine (Norvasc) 10 MG tabletIndication s:Essential hypertension TAKE 1 TABLET BY MOUTH EVERY DAY 90 tablet 3 025 Active cyanocobalamin (Vitamin B-12) 1000 MCG tablet Take 1 tablet (1,000 mcg) by mouth three times per week (Monday, Monday, Monday) 90 tablet 3 025 Active BD Pen Needle Short Ultrafine 31G X 8 MM misc USE DIRECTED WITH INSULIN DAILY 100 each 11 025 Active Trulicity 0.75 MG/0.5ML solution auto-injector INJECT ONE PEN (=0.75MG) SUBCUTANEOUSLY ONCE A WEEK DIRECTED 2 mL 5 025 Active omeprazole (PriLOSEC) [address] Dumont ns:Gastroesophag eal reflux disease, unspecified whether esophagitis present TAKE 1 CAPSULE BY MOUTH EVERY DAY BEFORE EVEING MEAL 90 capsule 3 025 Active hydroCHLOROthiaz gracie (HYDRODiuril) 25 MG tablet TAKE 1 TABLET BY MOUTH EVERY DAY 90 tablet 3 025 Active hydroCHLOROthiaz gracie (HYDRODiuril) 25 MG tablet TAKE 1 TABLET BY MOUTH EVERY DAY 90 tablet 3 024 2024 Discontinued Active Problems Problem Noted Date Diagnosed Date Fatty liver 02/29/2024 Overview (03/02/2024): -Dec 2023: Elevated of Alk phos w/ hx of cholecystectomy. GGT elevated. Abd US c/w fatty infiltration of liver. Pt with history of AUD. -Reviewed lifestyle interventions including routine physical activity, diet rich in fruits, vegetables, and healthy fats. Limited/no alcohol use. Assessment & Plan (05/29/2025 12:55 PM EDT): Encouraged to continue with changes in dietary habits and smoking cessation Assessment & Plan (03/02/2024 6:57 PM EDT): Encouraged to continue with changes in dietary habits and smoking cessation Healthcare maintenance 10/24/2022 Overview (05/29/2025): Colonoscopy - due 2022 (Following with [facility]), encouraged to call to schedule. Call PCP office with any difficulties Optometry - [facility] (KEY March 2025) Dental - declines LDCT 10/17/23, Lung RAD Cat 2, repeat Oct 2024 Last PE: 05/09/25 Assessment & Plan (05/29/2025 12:56 PM EDT): Referral to [facility] and LDCT at [facility] ordered. Assessment & Plan (09/22/2023 8:16 PM EST): -Colonoscopy - next due 2022 -Optometry - last appt Sep 2022, UTD -Dental - encouraged to establish with dental home -Lung CA screening: LDCT to [facility] ordered 09/22/23 Assessment & Plan (10/24/2022 4:18 PM EST): -Colonoscopy - next due 2022 -Optometry - last appt Sep 2022, UTD -Dental - encouraged to establish with dental home -COVID-19 vaccine: UTD w/ Bivalent booster -Vaccines: due for PCV20, encouraged to inquire at pharmacy Pustular psoriasis 09/30/2022 History of alcohol use 09/30/2022 Assessment & Plan (03/05/2023 8:21 PM EDT): In recovery, reports that he started drinking again to cope with life stressors Planning to discuss with passenger coach driver in [facility] after visit Declines further referrals at this time. Denies food insecurity. Fusion of lumbosacral spine 09/30/2022 Multiple nodules of lung 09/02/2021 Assessment & Plan (05/29/2025 12:57 PM EDT): Multiple bilateral part solid pulmonary groundglass opacities per Pulm surgery consult note Jul 2021 10/17/23: [facility] LDCT impression: C ompared to 2020, a 2mm solid nodule in the MALU and a 3mm groundglass nodule in the RUL were not definitely seen. LungRad Cat: 2. Benign appearance or behavior. Nodules with a very low likelihood of becoming a clinically active cancer due to size or lack of growth. Continue with annual screening with LDCT in 12 months. Assessment & Plan (12/11/2023 6:59 AM EST): Multiple bilateral part solid pulmonary groundglass opacities per Pulm surgery consult note Jul 2021 10/17/23: [facility] LDCT impression: C ompared to 2020, a 2mm solid nodule in the MALU and a 3mm groundglass nodule in the RUL were not definitely seen. LungRad Cat: 2. Benign appearance or behavior. Nodules with a very low likelihood of becoming a clinically active cancer due to size or lack of growth. Continue with annual screening with LDCT in 12 months. Assessment & Plan (10/24/2022 4:09 PM EST): -Multiple bilateral part solid pulmonary groundglass opacities per Pulm surgery consult note Jul 2021 -Improvement noted on repeat CT in Oct 2021, with plan to repeat in Oct 2022. Pt planning to call to follow up. Type 2 diabetes mellitus 09/02/2021 Overview (05/29/2025): Lab Results Component Value Date HGBA1C 5.0 05/07/2025 HGBA1C 5.3 05/05/2025 HGBA1C 5.2 06/14/2024 HGBA1C 5.6 03/01/2024 HGBA1C 5.6 09/22/2023 HGBA1C 5.9 (H) 07/09/2020 -A1c goal < 7%: well controlled -Opto: KEY completed 03/14/25 - no diabetic retinopathy or macular edema -Monofilament exam WNL 05/09/25 -Continue with current regimen: -Trulicity 0.75mg subcutaneous weekly -Lantus 20 units QAM -Continue checking BG at home, with FBG target 80-130 -ED/urgent care precautions reviewed Assessment & Plan (05/29/2025 12:51 PM EDT): Well controlled, cont as above. Discussed consideration of decreasing insulin, pt will consider. Assessment & Plan (06/14/2024 8:39 PM EDT): Well controlled, cont as above Assessment & Plan (03/02/2024 6:58 PM EDT): Well controlled, cont with current regimen Assessment & Plan (12/17/2023 6:48 PM EST): Lab Results Component Value Date HGBA1C 5.6 09/22/2023 -Denies any episodes of hypo or hyperglycemia -Previous A1c 8.3% on 03/02/23, congratulated on improvement in readings -Opto: KEY completed 09/29/23 - no diabetic retinopathy or macular edema -Monofilament exam WNL 12/11/23 -Continue with current regimen: -Trulicity 3mg subcutaneous weekly -Lantus 20 units QAM -Continue checking BG at home, with FBG target 80-130 -ED/urgent care precautions reviewed Assessment & Plan (09/22/2023 6:35 AM EST): Lab Results Component Value Date HGBA1C 6.4 (A) 06/22/2023 -Denies any episodes of hypo or hyperglycemia -Previous A1c 8.3% on 03/02/23, congratulated on improvement in readings -Opto: KEY completed 09/26/22 - no diabetic retinopathy or macular edema -Monofilament exam WNL 10/17/22 -Continue with current regimen: -Trulicity 1.5mg subcutaneous weekly -Lantus 24 units QAM -Continue checking BG at home, with FBG target 80-130 -ED/urgent care precautions reviewed Assessment & Plan (06/22/2023 10:02 AM EDT): Lab Results Component Value Date HGBA1C 6.4 (A) 06/22/2023 -Denies any episodes of hypo or hyperglycemia -Previous A1c 8.3% on 03/02/23, congratulated on improvement in readings -Opto: KEY completed 09/26/22 - no diabetic retinopathy or macular edema -Monofilament exam WNL 10/17/22 -Continue with current regimen: -Trulicity 1.5mg subcutaneous weekly -Lantus 24 units QAM -Continue checking BG at home, with FBG target 80-130 -ED/urgent care precautions reviewed Assessment & Plan (03/05/2023 8:22 PM EDT): Lab Results Component Value Date HGBA1C 8.3 (A) 03/02/2023 -Denies any episodes of hypo or hyperglycemia -Previous A1c 7.0% on 10/17/22 -Opto: KEY completed 09/26/22 - no diabetic retinopathy or macular edema -Monofilament exam WNL 10/17/22 -Continue with current regimen: -Trulicity 1.5mg subcutaneous weekly -Lantus 24 units QAM -Continue checking BG at home, with FBG target 80-130 -ED/urgent care precautions reviewed Assessment & Plan (10/24/2022 4:14 PM EST): -Denies any episodes of hypo or hyperglycemia -A1c 7.0% on 10/17/22 -Opto: KEY completed 09/26/22 - no diabetic retinopathy or macular edema -Monofilament exam WNL 10/17/22 -Continue with current regimen: -Trulicity 1.5mg subcutaneous weekly -Lantus 24 units QAM -Continue checking BG at home, with FBG target 80-130 -ED/urgent care precautions reviewed Chronic low back pain 07/20/2018 Obesity 07/20/2018 Tobacco dependence syndrome 07/20/2018 Overview (06/14/2024): -Currently smokin.5 cigg a few times per week -Age started smokin y.o. -Maximum cigg smoked per day: 40 cigg -Pack year history: > 20 pack years -LDCT: Lung [facility]ADS 14 Oct 2023 -Cont NRT lozenges PRN Assessment & Plan (05/29/2025 12:57 PM EDT): Referral for LDCT at [facility] Assessment & Plan (06/14/2024 8:39 PM EDT): Congratulated on smoking cessation progress Assessment & Plan (03/02/2024 6:59 PM EDT): Congratulated on smoking cessation progress Assessment & Plan (12/17/2023 6:49 PM EST): -Currently smokin cigg/day -Age started smokin y.o. -Maximum cigg smoked per day: 40 cigg -Pack year history: > 20 pack years -LDCT: Lung RADS 14 Oct 2023 -Encouraged smoking cessation resources such as pharmacomtherapy, [facility] smoking cessation group, and [facility] pharmacy clinic -In agreement to trial NRT lozenges Assessment & Plan (09/22/2023 9:19 AM EST): -Currently smokin-5 cigg/day -Age started smokin y.o. -Maximum cigg smoked per day: 40 cigg -Pack year history: > 20 pack years -Referral for LDCT 09/22/23 to [facility] -Encouraged smoking cessation resources such as pharmacomtherapy, [facility] smoking cessation group, and [facility] pharmacy clinic -Declines NRT as rxn to patches in the past Assessment & Plan (06/22/2023 10:03 AM EDT): -Pt previously smoking 1-2 cigg/day, currently increased to 10 cigg/day -Encouraged smoking cessation resources such as pharmacomtherapy, [facility] smoking cessation group, and [facility] pharmacy smoking cessation clinic -Pt planning to follow up as interested in future Assessment & Plan (10/24/2022 4:15 PM EST): -Pt currently smoking 1-2 cigg/day -Aware of smoking cessation resources at [facility] Essential hypertension 04/16/2018 Overview (05/29/2025): -Reports well controlled at home -Continue with current regimen: -Amlodipine 10mg daily -lisinopril 40mg daily -Toprol 25mg daily -Continue with lifestyle modifications such as low salt diet and exercise as able Previous meds: -hydrochlorothiazide 25mg daily HOLD 05/2025 2/2 hyponatremia Assessment & Plan (05/29/2025 12:54 PM EDT): -Well controlled -Continue with lifestyle modifications such as low salt diet and exercise as able Assessment & Plan (06/22/2023 8:13 AM EDT): -Reports well controlled at home -Continue with current regimen: -Amlodipine 10mg daily -hydrochlorothiazide 25mg daily -lisinopril 40mg daily -Toprol 25mg daily -Continue with lifestyle modifications such as low salt diet and exercise as able Assessment & Plan (10/24/2022 4:10 PM EST): -Reports well controlled at home -Continue with current regimen: -Amlodipine 10mg daily -hydrochlorothiazide 25mg daily -lisinopril 40mg daily -Toprol 25mg daily -Continue with lifestyle modifications such as low salt diet and exercise as able Hypertriglyceridemia 07/10/2012 Overview (05/29/2025): Lab Results Component Value Date TRIG 98 05/07/2025 TRIG 111 07/14/2023 TRIG 225 (H) 10/18/2022 Assessment & Plan (05/29/2025 12:53 PM EDT): Well controlled Continue atorvastatin 40mg nightly and lifestyle interventions Assessment & Plan (12/17/2023 6:48 PM EST): Last TG 111 mg/dL in Jul 2023, WNL Continues with atorvastatin 40mg nightly and lifestyle interventions Assessment & Plan (09/22/2023 9:16 AM EST): Last TG 111 mg/dL in Jul 2023, WNL Continues with atorvastatin 40mg nightly and lifestyle interventions Assessment & Plan (06/22/2023 8:14 AM EDT): Last TG 225 Oct 2022 Goal to first optimize highest tolerated dose of statin Continues on atorvastatin 40mg nightly w/o noted SE Recheck lipids and LFTs Assessment & Plan (03/05/2023 8:24 PM EDT): Last TG 225 Oct 2022 Goal to first optimize highest tolerated dose of statin Continues on atorvastatin 40mg nightly w/o noted SE Recheck lipids and LFTs next appt Hypoalphalipoproteinemia 07/10/2012 Obstructive sleep apnea syndrome 05/09/2012 Assessment & Plan (12/17/2023 6:47 PM EST): -Sleep study completed January 2022, difficulties getting CPAP -[employer] forms signed Nov 2023, should be contacted by company shortly Assessment & Plan (10/24/2022 4:09 PM EST): -Sleep study completed January 2022, pt reports still without CPAP -Will send message to DME specialist to assist with follow up Gastritis 04/16/2012 Assessment & Plan (10/24/2022 4:10 PM EST): -Continues with omeprazole 20mg daily Encounters Date Type Department Care Team Description 08/04/2025 Patient Outreach [facility] [address] [place] [address] Bel Toro, BUSINESS ASSISTANT Pre-visit Planning (SDOH screening completed on 04/28/25) 08/01/2025 Telephone [facility] [address] [place] [phone] Bel Toro, BUSINESS ASSISTANT 07/31/2025 Refill [facility] [address] [place] [phone] Bel Toro FNP 07/06/2025 Refill [facility] [address] [place] [phone] Bel Toro, BUSINESS ASSISTANT Gastroesophageal reflux disease, unspecified whether esophagitis present 06/20/2025 Telephone [facility] [address] [place] [address] Bel Toro, BUSINESS ASSISTANT Lung CT scan 06/16/2025 Refill [facility] [address] [place] [phone] Bel Toro FNP 05/29/2025 Telephone [facility] [address] [place] [address] Bel Toro, BUSINESS ASSISTANT Lung Cancer Screening: LDCT 05/23/2025 Orders Only [facility] [address] [place] [address] Bel Toro, BUSINESS ASSISTANT Hyponatremia (Primary Dx) 05/22/2025 Telephone [facility] [address] [place] [phone] Bel Toro FNP 05/12/2025 Refill [facility] [address] [place] [phone] Bel Toro, BUSINESS ASSISTANT 05/12/2025 Results Follow-Up [facility] [address] [place] [address] Bel Toro, BUSINESS ASSISTANT POCT A1C, POCT glucose manually resulted, Albumin, Random Urine W/Creatinine, Additional followed-up results: 11 from Last 3 Months Immunizations Immunization Administration Dates Next Due Hep A, Adult 07/06/2021,01/05/2021,06/15/2011 Hep B, adult 04/27/2021,,09/02/2011,06/15 Influenza Injectable Quadriv alant Preservative Free IIV4 MDCK 08/13/2020 Influenza injectable quadriv alent IIV4 with preservative 10/21/2019,10/10/2016 Influenza injectable quadriv alent preservative free 09/11/2023,08/30/2022,09/03/2021,08/15,10/05/2015 Influenza, IIV3, injectable 09/02/2011 Influenza, Split (incl. isabella fied surface antigen) 10/18/2013,07/10/2012 Influenza, seasonal, injecta ble, preservative free 07/30/2024 Presley SARS-CoV-2 Vaccination 01/27/2021 Pfizer Covid-19 Vaccine 12+ 08/13/2024,,01/05/2022 Pfizer Covid-19 Vaccine 12+ Bivalent 08/30/2022 Pneumococcal Conjugate PCV 20 06/22/2023 Pneumococcal Polysaccharide PPSV23 09/02/2011 Tdap 02/09/2015 Zoster, Recombinant 03/21/2022,01/12/2022 Family History Medical History Relation Name Comments Diabetes Brother gastric cancer Father Diabetes Mother Hypertension Mother Stroke Mother Breast cancer Sister 1 Breast cancer Sister 2 Relation Name Status Comments Brother Father Mother Sister 1 Sister 2 Social History Tobacco Use Types Packs/Day Years Used Date Smoking Tobacco: Some Days Cigarettes Passive Smoke Exposure: Current Smokeless Tobacco: Never Tobacco Cessation:Ready to Q uit: Not Asked; Counseling Given: Not Answered Alcohol Use Standard Drinks/Week Comments Yes 0 [...] Orientation Straight 09/12/2022 10 :18 AM EDT Last Filed Vital Signs Vital Sign Reading Time Taken Comments Blood Pressure 127/73 05/05/2025 10:31 AM EDT Pulse 88 05/05/2025 10:31 AM EDT Temperature 36.4 C (97.5 F) 05/05/2025 10:31 AM EDT Respiratory Rate 18 05/05/2025 10:31 AM EDT Oxygen Saturation 97% 05/05/2025 10:31 AM EDT Inhaled Oxygen Concentration - - Weight 90.3 kg (199 lb) 05/05/2025 10:31 AM EDT Height 162.6 cm (5' 4 ) 05/05/2025 10:31 AM EDT Body Mass Index 34.16 05/05/2025 10:31 AM EDT Plan of Treatment Upcoming Encounters Date Type Department Care Team (Late st Contact Info) Description 08/11/2025 9:00 AM EDT Office Visit [facility] [address] [place] [address] Ble Toro FNP [address] [place] [address] Health Maintenance Due Date Last Done Comments CT Colonography 1967 FIT DNA/Cologuard 1967 FIT 1967 FOBT 1967 Sigmoidoscopy 1967 Alcohol/Substance Use Screening 1979 Colonoscopy 07/24/2021 07/24/2018 Colorectal Cancer Screening 07/24/2021 DTaP/Tdap/Td Vaccines (2 - Td or Tdap) 02/09/2025 02/09/2015 Influenza Vaccine (#1) 2025 , 09/11/2023, 08/30/2022, Additional history exists Diabetes: Hemoglobin A1C 11/06/2025 025, 05/05/2025, 06/14/2024, Additional history exists Tobacco Screening 04/02/2026 04/02/2025 SDOH Screening 04/28/2026 04/28/2025 Depression Screening 05/05/2026 05/05/2025, 05/05/20 Diabetes: Foot Exam 05/05/2026 05/05/2025, 05/05/2025, 05/05/2025, Additional history exists Disability Screening 05/05/2026 05/05/2025 Diabetes: Urine Protein Screening 05/07/2026 05/07/2025, 12/14/2023, 09/06/2021, Additional history exists Lipid Panel 05/07/2026 05/07/2025, 09/0 11/2022, 10/18/2022, Additional history exists Eye Exam 03/14/2027 03/14/2025, 050 12/2024, 03/14/2025, Additional history exists RSV Patients and Patients Aged 60 years or older (1 - 1-dose 75+ series) 2042 Hepatitis B Vaccines Completed 04/27/2021, 03/30/2021, 09/02/2011, Additional history exists Hepatitis A Vaccines Completed 07/06/2021, 01/05/2021, 06/15/2011 Zoster Vaccines Completed 03/21/2022, 01/12/2022 Pneumococcal Vaccine: 50+ Years Completed 06/22/2023, 09/02/2011 COVID-19 Vaccine Completed 08/13/2024, , 08/30/2022, Additional history exists HIV Screening Completed 05/07/2025, 02/0 11/2023, 12/03/2020, Additional history exists Hepatitis C Screening Completed 05/07/2025 , 12/14/2023, 02/15/2021, Additional history exists HIB Vaccines Aged Out No longer eligi ble based on patient's age to complete this topic HPV Vaccines Aged Out No longer eligi ble based on patient's age to complete this topic IPV Vaccines Aged Out No longer eligi ble based on patient's age to complete this topic Meningococcal B Vaccine Aged Out No l onger eligible based on patient's age to complete this topic Meningococcal Vaccine Aged Out No addie carlo eligible based on patient's age to complete this topic RSV under 20 months Aged Out No longe r eligible based on patient's age to complete this topic Rotavirus Vaccines Aged Out No longer eligible based on patient's age to complete this topic Procedures Procedure Name Priority Date/Time Associated Diagnosis Comments BASIC METABOLIC PANEL Routine 05/13/2025 8:13 AM EDT Hyponatremia HEPATITIS C VIRAL RNA, QUANTITATIVE, REAL-TIME PCR Routine 05/07/2025 8:28 AM EDT Healthcare maintenance HIV 1/2 ANTIGEN/ANTIBODY, FOURTH GENERATION W/RFL Routine 05/07/2025 8:28 AM EDT Healthcare maintenance ALBUMIN, RANDOM URINE W/CREATININE Routine 05/07/2025 8:28 AM EDT Healthcare maintenance HEMOGLOBIN A1C Routine 05/07/2025 8:28 AM EDT Healthcare maintenance LIPID PANEL, STANDARD Routine 05/07/2025 8:28 AM EDT Healthcare maintenance HM COLONOSCOPY Routine 07/24/2018 from Last 3 Months or Most Recently Relevant to Health Maintenance Results * (ABNORMAL) Basic Metabolic Panel (05/13/2025 8:13 AM EDT) Sodium 134(L) 135 - 145 mmol/L [facility] Potassium 3.8 3.3 - 5.1 mmol/L [facility] Chloride 94(L) 96 - 108 mmol/L [facility] Carbon Dioxide 31(H) 22 - 29 mmol/L [facility] Anion Gap 13 12 - 20 [facility] Urea Nitrogen (BUN) 6(L) 9 - 16 mg/dL [facility] Creatinine, Serum 0.70 0.5 - 1.4 mg/dL [facility] Estimated Glomerular Filt Rate >60 [facility] Comment:Chronic Kidney Disea se: Estimated GFR < 60 mL/min/[id number] Kidney Disease: Estimated GFR < 15 mL/min/1.73m2 Glucose 117(H) 60 - 115 mg/dL [facility] Calcium 9.3 8.4 - 10.2 mg/dL [facility] Blood Venous blood specimen / Unknown 05/13/2025 8:13 AM EDT 05/13/2025 2:29 PM EDT Bel DOWELL LAB BLOOD ORDERABLES Final Res ult [facility] [address] [place] [address] [phone] * Hepatitis C Viral RNA, Quantitative, Real-Time PCR (05/07/2025 8:28 AM EDT) Hepatitis C Viral Load <15 NOT DETECTED NOT DETECTED IU/mL [facility] HCV Log PCR <1.18 NOT DETECTED NOT DETECTED Log IU/mL [facility] Comment:For additional infor mation, please refer [email or web address].WellApps/faq/[email or web address](This link is being provided for informational/educational purposes only.)THIS TEST WAS PERFORMED AT:[facility] [place] [id number] SALEH MD Blood 05/07/2025 8:28 AM EDT 05/07/2025 11:05 AM EDT Bel [facility] LAB BLOOD ORDERABLES Final Res ult Performing Organization Address [facility] Co de Phone Number [facility] [address] [place] [phone] * Albumin, Random Urine W/Creatinine (05/07/2025 8:28 AM EDT) Creatinine, Urine 56.11 mg/dL [facility] Microalbumin Urine 12.0 mg/L [facility] Microalbum Creatinine Ratio Ur 21.3 <30 ug/mg cr [facility] Comment:Albumin/Creatinine R atio Reference Ranges: Normal: < 30 ug/mg creatinine Microalbuminuria: 30 - 300 ug/mg creatinineClinical Albuminuria: > 300 ug/mg creatinine Urine 05/07/2025 8:28 AM EDT 05/07/2025 11:10 AM EDT Bel [facility] LAB URINE ORDERABLES Final Res ult Performing Organization Address [facility] Co de Phone Number [facility] [address] [place] [phone] * HIV-1/2 Antigen and Antibodies, Fourth Generation, with Reflexes (05/07/2025 8:28 AM EDT) HIV AB/AG Nonreactive Nonreactive [facility] Comment:HIV-1 p24 Ag and/or HIV-1/HIV-2 Ab not detected.A test result that is nonreactive does not exclude thepossibility of exposure to or infection with HIV-1 and/orHIV-2. Nonreactive results in this assay for individualswith prior exposure to HIV-1 and/or HIV-2 may be due toantigen and antibody levels that are below the limit ofdetection of this assay.The [employer] HIV Ag/Ab Combo assay result andsupplemental assay results should be interpreted inconjunction with the patient's clinical presentation,history and other laboratory results. If the results areinconsistent with clinical evidence, additional testing issuggested to confirm the result. Blood Venous blood specimen / Unknown 05/07/2025 8:28 AM EDT 05/07/2025 11:05 AM EDT Bel Toro BUSINESS ASSISTANT LAB BLOOD ORDERABLES Final Res ult Performing Organization Address [facility] Co de Phone Number [facility] [address] [place] [phone] * Hemoglobin A1c (05/07/2025 8:28 AM EDT) Hemoglobin A1c 5.0 <6.0 % [facility] Comment:Hemoglobin A1C Refer ence Range Adults: 4.8 - 6.0 % Non diabetic: < 6.0 % Goal: < 7.0 %Additional Action Suggested: > 8.0 %Note: Hemoglobin A1c results are invalid for patients with abnormal amounts of HbF. Blood transfusions may impact the HbA1c concentration in the patient sample. Estimated Average Glucose 97 mg/dL [facility] Comment:eAG = Estimated ave rage glucose which is %A1C expressed asaverage glucose, using the formula of the [id number] Glucose study (ADAG), Diabetes Care, Vol.31,#8,2007 Blood Venous blood specimen / Unknown 05/07/2025 8:28 AM EDT 05/07/2025 11:05 AM EDT Bel Toro BUSINESS ASSISTANT LAB BLOOD ORDERABLES Final Res ult Performing Organization Address [facility] Co de Phone Number [facility] [address] [place] [phone] * Lipid Panel, Standard (05/07/2025 8:28 AM EDT) Triglycerides 98 <150 mg/dL [facility] Comment:Desirable Triglyceri de: less than 150 mg/dLBorderline High Triglyceride 150-199 mg/dLHigh Triglyceride: 200-499 mg/dLVery High Triglyceride: greater than or equal to 5OO mg/dL Cholesterol 121 <200 mg/dL [facility] Comment:Desirable Cholestero l: less than 200 mg/dLBorderline High Cholesterol: 200-239 mg/dLHigh Cholesterol: greater than 239 mg/dL LDL Cholesterol Calculated 39 <100 mg/dL [facility] Comment:Desirable LDL: less than 100 mg/dLNear Optimal/Above Optimal LDL: 110- 129 mg/dLBorderline High LDL: 130-159 mg/dLHigh LDL: 160-189 mg/dLVery High LDL: greater than or equal to 190 mg/dL HDL Cholesterol 63 >40 mg/dL [facility] Comment:Desirable HDL: great er than 40 mg/dL Note: This HDL assay may give artificially low results in patients with liver disease. Blood Venous blood specimen / Unknown 05/07/2025 8:28 AM EDT 05/07/2025 11:05 AM EDT Bel Toro BUSINESS ASSISTANT LAB BLOOD ORDERABLES Final Res ult [facility] [address] [place] [phone] * Colonoscopy (07/24/2018) Colonoscopy Normal Normal Narrative Dottie Hill - 07/24/2018 Repeat in 3 years Historical Provider HEALTH MAINTENANCE Final Result from Last 3 Months or Most Recently Relevant to Health Maintenance Insurance C3 Care Teams Drawing Checker Relationship Specialty Start Date End Date Bel Toro FNP [address] [place] [phone] PCP - General Family Medicine 08/30/21
--- OUTSIDE RECORDS SUMMARY | 2025-08-08 08:47 | XMS_ITS | Encounter Summary ---
Author Organization [employer] Address [address] [facility] [address] [place] [address] Care Team Providers Care Supervisor Power Reactor Name Role Phone Bel Toro Primary Care Provider [phone] Encounter Details Date Type Department Care Team ([facility] st Contact Info) Description 12/25/2023 Orders Only [facility] [address] [place], [place] [phone] Bel Toro FNP [address] [place] [address] Hypokalemia Social History Tobacco Use Types Packs/Day Years Used Date Smoking Tobacco: Every Day Cigarettes Passive Smoke Exposure: Current Smokeless Tobacco: [...] Description 08/11/2025 9:00 AM EDT Office Visit [facility] MED [facility]ED[facility] [address] [place] [address] Bel Toro FNP [address] [place] [address] documented as of this encounter Procedures Procedure Name Priority Date/Time Associated Diagnosis Comments BASIC METABOLIC PANEL Routine 01/03/2024 8:11 AM EST Hypokalemia documented in this encounter Results * (ABNORMAL) Basic Metabolic Panel (01/03/2024 8:11 AM EST) Sodium 134(L) 135 - 145 mmol/L [facility] Potassium 3.3 3.3 - 5.1 mmol/L [facility] Chloride 96 96 - 108 mmol/L [facility] Carbon Dioxide 25 22 - 29 mmol/L [facility] Anion Gap 16 12 - 20 [facility] Urea Nitrogen (BUN) 10 9 - 16 mg/dL [facility] Creatinine, Serum 0.81 0.5 - 1.4 mg/dL [facility] Estimated Glomerular Filt Rate >60 [facility] Comment:NOTE: For -Am erican individuals, multiply the result by 1.210.Chronic Kidney Disease: Estimated GFR < 60 mL/min/1.18s4Znatwe Kidney Disease: Estimated GFR < 15 mL/min/1.73m2 Glucose 100 60 - 115 mg/dL [facility] Calcium 9.4 8.4 - 10.2 mg/dL [facility] Blood Venous blood specimen / Unknown 01/03/2024 8:11 AM EST 01/03/2024 2:37 PM EST us Bel DOWELL LAB BLOOD ORDERABLES Final Res ult [facility] [address] [place] [address] [phone] documented in this encounter Visit Diagnoses Diagnosis Hypokalemia Hypopotassemia documented in this encounter Additional Health Concerns Assessment Noted Time PHQ-9 Depression Total Score: 0 12/11/19 24 10:43 AM EST documented as of this encounter Care Teams Supervisor Power Reactor Relationship Specialty Start Date End Date Bel Toro FNP [address] [place] [address] PCP - General Family Medicine 08/30/21 documented as of this encounter
--- OUTSIDE RECORDS SUMMARY | 2025-08-08 08:47 | XMS_ITS | Encounter Summary ---
Author Organization [employer] Address [address] [facility] [address] [place] [address] Care Team Providers Care Eyeglass Assembler Name Role Phone Bel Toro PUBLISHING SYSTEMS ANALYST Primary Care Provider [phone] Encounter Details Date Type Department Care Team (Late st Contact Info) Description 09/29/2023 Abstract [facility] [address] [place] [address] Dottie Hill Social History Tobacco Use Types [...] Upcoming Encounters Date Type Department Care Team ([facility] st Contact Info) Description 08/11/2025 9:00 AM EDT Office Visit [facility] [address] [place] [address] Bel Toro FNP [address] [place] [address] documented as of this encounter Procedures Procedure [...] documented as of this encounter Care Teams Eyeglass Assembler Relationship Specialty Start Date End Date Bel Toro FNP [address] [place] [address] PCP - General Family Medicine 08/30/21 documented as of this encounter
--- OUTSIDE RECORDS SUMMARY | 2025-08-08 08:47 | XMS_ITS | Encounter Summary ---
Author Organization [employer] Address [address] [facility] [address] [place] [address] Care Team Providers Care Flight Director Name Role Phone Bel Toro Primary Care Provider Reason for Visit * Reason Onset Date Comments Appointment Request 02/15/2023 Encounter Details Date Type Department Care Team ([facility] st Contact Info) Description 02/15/2023 Telephone [facility] MED[facility] [address] [place] [address] Bel Toro FNP [address] [place], [place] [phone] Appointment Request Social History Tobacco Use Types Packs/Day Years Used Date Smoking Tobacco: Every Day Cigarettes Smokeless Tobacco: Never Alcohol Use Standard Drinks/Week Comments Never 0 (1 standard drink = 0.6 oz pur e alcohol) Sex and Gender Information Value Date Recorded Sex Assigned at Male 09/12/2022 10:18 AM EDT Legal Sex Male 10:18 AM EDT Gender Identity Male 09/12/2022 10:18 AM EDT Sexual Orientation Straight 09/12/2022 10 :18 AM EDT COVID-19 Exposure Response Date Recorded In the last 10 days, have yo u been in contact with someone who was confirmed or suspected to have Coronavirus/COVID-19? No / Unsure 02/08/2023 8:38 AM EDT documented as of this encounter Miscellaneous Notes * Telephone Encounter - Danyelle Maria - 02/15/2023 11:06 AM EDT Tc from pt requesting an appt with provider. Complaints Coordinator sees pt is on a January recall but provider unfortunately provider had no available appt. Please contact pt at [phone] Serbian Speaker documented in this encounter Plan of Treatment Upcoming Encounters Date Type Department Care Team ([facility] st Contact Info) Description 08/11/2025 9:00 AM EDT Office Visit [facility] MED & PEDS [address] [place] [address] Bel Toro FNP [address] [place] [address] documented as of this encounter Visit Diagnoses Not on filedocumented in this encounter Care Teams Flight Director Relationship Specialty Start Date End Date Bel Toro FNP [address] [place] [phone] PCP - General Family Medicine 08/30/21 documented as of this encounter
--- OUTSIDE RECORDS SUMMARY | 2025-08-08 08:47 | XMS_ITS | Encounter Summary ---
Author Organization [employer] Address [address] [facility] [address] [place] [address] Care Team Providers Care Spa Manager Name Role Phone Bel Toro Primary Care Provider [phone] Reason for Visit * Reason Comments Med Refill Encounter Details Date Type Department Care Team ([facility] st Contact Info) Description 04/29/2025 Refill [facility] MED & PEDS [address] [place], [place] [phone] Bel Toro FNP [address] [place] [address] Social History Tobacco Use Types Packs/Day Years [...] Upcoming Encounters Date Type Department Care Team ([facility] st Contact Info) Description 08/11/2025 9:00 AM EDT Office Visit [facility] MED & PEDS [address] [place] [address] Bel Toro FNP [address] [place] [address] documented as of this encounter Visit Diagnoses Not on filedocumented in this encounter Additional Health Concerns Assessment Noted Time PHQ-9 Depression Total Score: 0 12/11/19 24 10:43 AM EST documented as of this encounter Care Teams Spa Manager Relationship Specialty Start Date End Date Bel Toro FNP [address] [place] [address] PCP - General Family Medicine 08/30/21 documented as of this encounter
[2025-08-08 14:45] LABS: Anion Gap 11 (12-20); Blood Urea Nitrogen 8 mg/dL (9-16); Calcium 9.1 mg/dL (8.4-10.2); Carbon Dioxide 29 mmol/L (22-29); Chloride 101 mmol/L (96-108); Estimated Glomerular Filt Rate > 60; Potassium 3.8 mmol/L (3.3-5.1); Sodium 137 mmol/L (135-145)
== END 2025-08-08 08:29 | disposition home or self-care (01) ==
LOC: HO.CHCLDS 08:28
PROVIDERS: Visit Provider Registered Nurse
DX: E87.1 Hypo-osmolality and hyponatremia (principal)
CPT/HCPCS: 36415; 80048